=== PATIENT | male | born 1945 | race Caucasian/White ===

== ENCOUNTER → 2020-08-24 | Outpatient (REF) | payer MEDICARE, OTHER ==
[2020-08-24 18:22] LABS: BACTERIA, URINE AUTO NEGATIVE (NEGATIVE); MUCUS, URINE SMALL (NEGATIVE); RBC, URINE AUTO 6 /HPF (0-3); SQUAMOUS EPITHELIAL CELL UR AU 0 /HPF (0-6); WBC, URINE AUTO 2 /HPF (0-3)
== END ==
LOC: M LAB REF 16:42
PROVIDERS: ATTEND Internal Medicine Nephrology
DX: R31.9 Hematuria, unspecified (principal)

== ENCOUNTER → 2020-09-06 | Outpatient (CLI) | payer MEDICARE, OTHER ==
[~2020-09-06] MED LIST: ISOVUE-370 76% 100ML VIAL As Ordered ONE
--- NOTE | 2020-09-06 09:55 | REP ---
INDICATION: CKD STAGE 3A, HEMATURIAREAD SCHED NOTES*INSTRUCT. COMPARISON: None. TECHNIQUE: Abdomen and pelvis CT with IV contrast, without IV, without bowel contrast, dual phase scanning. Scanning is initially performed during the arterial/renal cortical enhancement phase and repeated later during the renal excretion phase of enhancement. FINDINGS: The visualized lung sharp are unremarkable. There is a hypodense 1.3 cm round lesion in the hepatic left lobe medial segment near the dome of the liver, likely an hepatic cyst. The hepatic parenchyma is otherwise homogeneous. Within the gallbladder, pancreas and spleen are normal size and otherwise unremarkable. The adrenals are unremarkable. There is a nonobstructive 4 mm right renal upper pole calculus. There are no other renal calculi on the right or the left. There is no hydronephrosis on the right or the left. There are no solid or cystic renal masses on the right or the left. The right kidney measures 10.5 cm craniocaudad length in the left kidney measures 10.4 cm craniocaudad length. Kidneys are normal size. There are no focal or diffuse areas of renal cortical atrophy. There are no solid or cystic renal masses. There is no perinephric stranding or perinephric fluid. The abdominal aorta is unremarkable except for occasional small areas of calcified atheroma. There is no periaortic adenopathy or mass. There is calcified atheroma at the origin of the left renal artery at the aorta. There is a small calcified atheromatous plaque in the origin of the right renal artery. There is no bowel distention or obstruction. There is a cecal diverticulum. There diverticula in the ascending colon, transverse colon, descending colon and sigmoid colon. There is no CT evidence of diverticulitis. The mesentery is otherwise unremarkable. Pelvis: The appendix is unremarkable. The bladder is unremarkable. There is no adenopathy or ascites. There is degenerative disc disease throughout the lumbar spine, most advanced at L5-S1. The skeletal structures are otherwise unremarkable. IMPRESSION: The kidneys are normal size. There is no CT evidence of focal or diffuse renal cortical atrophy. There are no solid or cystic renal masses. There is no hydronephrosis. There is a nonobstructive right knee renal upper pole 4 mm calculus. There is no perinephric stranding or perinephric fluid. There is calcified atheroma at the origins of the renal arteries bilaterally. If there is clinical concern for renal artery stenosis consider follow-up renal artery MRA or renal artery Doppler ultrasound. Colonic diverticula including cecal diverticulum without evidence of acute diverticulitis. No adenopathy, mass or ascites. Hepatic left lobe cyst. <Electronically signed by Kelvin Medellin > 09/06/20 [id number]
== END ==
LOC: M RAD 08:03
PROVIDERS: ATTEND Internal Medicine Nephrology
DX: K76.89 Other specified diseases of liver (principal); N18.31 Chronic kidney disease, stage 3a; I12.9 Hypertensive chronic kidney disease with stage 1 through stage 4 chronic kidney disease, or unspecified chronic kidney disease; R31.9 Hematuria, unspecified
CPT/HCPCS: 74177; Q9967

== ENCOUNTER → 2021-06-25 | Outpatient (REF) | payer MEDICARE, OTHER | LOC: M LAB REF 12:50 | PROVIDERS: ATTEND Internal Medicine Nephrology | DX: N18.31 Chronic kidney disease, stage 3a (principal) ==